=== PATIENT | female | born 1955 | race Caucasian/White ===

== ENCOUNTER 2017-05-31 01:27 | Emergency (ER) | payer OTHER ==
[~2017-05-31] VITALS: Ht 175.3 cm; Wt 79.2 kg
[2017-05-31] MEDS ORDERED: NORCO 5/3251 TABLET PO (03:15)
[2017-05-31 03:42] VITALS: BP 144/80
== END 2017-05-31 03:43 | disposition home or self-care (01) ==
LOC: EME 01:27
DX: S00.83XA Contusion of other part of head, initial encounter (principal); S01.01XA Laceration without foreign body of scalp, initial encounter; M54.2 Cervicalgia; W01.10XA Fall on same level from slipping, tripping and stumbling with subsequent striking against unspecified object, initial encounter; D66 Hereditary factor VIII deficiency; Z88.6 Allergy status to analgesic agent; Z98.890 Other specified postprocedural states
CPT/HCPCS: 70450; 72125; 99281; 99283